=== PATIENT | male | born 1960 | race Caucasian/White ===

== ENCOUNTER 2018-05-13 06:15 | Day surgery (SDC) | payer OTHER ==
[~2018-05-13] VITALS: Ht 180.3 cm; Wt 93.0 kg
--- NOTE | ~2018-05-13 | OP ---
PATIENT NAME: NIR GRACE MEDICAL RECORD: [id number] LOCATION:[facility] ADMISSION DATE: SURGEON: OSCAR ROGERS MD DATE OF OPERATION: 05/13/2018 PREOPERATIVE DIAGNOSIS: Symptomatic ventral hernia. POSTOPERATIVE DIAGNOSIS: Symptomatic incarcerated ventral hernia. PROCEDURE: Open incarcerated ventral hernia repair without mesh. 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 BLOOD LOSS: Minimal. ANESTHESIA: General. COMPLICATIONS: None. The risks, possible complications, and alternatives to the procedure were explained to the patient. He elected to proceed. The discussion specifically included, but was not limited to, bleeding, requiring emergency reoperation; infection; recurrence. OPERATIVE COURSE: The patient was conveyed to the operating room electively on 05/13/2018. General anesthesia was induced by the anesthesia staff. The abdomen was sterilely prepped and draped. A midline incision was accomplished within the umbilicus. Sharp dissection was carried down to the level of incarcerated preperitoneal fat. This was excised in piecemeal fashion. I then cleansed the area around the hernia defect from overlying connective tissue. I then performed a closure of the hernia with multiple interrupted horizontal mattress #0 [place]. I then tacked down the umbilical skin to the underlying repair with 3-0 Vicryl. The skin was approximated with interrupted 4-0 Vicryl Rapide sutures and then Dermabond. The patient was then extubated and conveyed to postanesthesia care unit, where he was in stable condition. I will see him in the office in 2-3 weeks. I am going to dismiss him home on [place] as well as [place]. TRANSINT:[id number] Voice Confirmation ID: [id number] DOCUMENT ID: [id number] OSCAR ROGERS MD at 1653 CC: [id number] DICTATION DATE: 05/14/18 1053 CLIENT SERVICE CONSULTANT: 05/14/[address] [facility] 05/13/18 [place] [id number] [place] [id number]
[~2018-05-13 06:15] MED LIST: FISH OIL 1,0001 CA1 PO; FLUTICASONE PRO16 GM NASAL; OS-CAL500 MG PO; PROTONIX40 MG PO; SUDAFED 30 MG T30 MG PO; SUPER B COMPLE150 MG PO; SUPHEDRINE PE PO; TESTOSTERONE INJ; ZOCOR20 MG PO; [UNRECOGNIZED DRUG - OTHER] PO
[2018-05-13 07:06] VITALS: BP 128/89; Ht 180.3 cm; Wt 93.0 kg
== END 2018-05-13 11:59 | disposition home or self-care (01) ==
LOC: D.OPS 06:15 → D.PAN 13:15 → D.OPS 13:30
DX: K43.6 Other and unspecified ventral hernia with obstruction, without gangrene (principal); Z01.812 Encounter for preprocedural laboratory examination